=== PATIENT | male | born 1945 | race Caucasian/White ===

== ENCOUNTER 2022-11-09 09:31 | Emergency (ER) | payer MEDICARE ==
[2022-11-09 09:43] VITALS: TEMP 98.4
--- NOTE | 2022-11-09 11:18 | ED ---
Abdominal Pain HPI - General Chief Complaint: Abdominal Pain Stated Complaint: abd pain Time Seen by Provider: 11/09/22 10:38 Source: patient Mode of arrival: ambulatory Limitations: no limitations - History of Present Illness Initial Comments: 77-year-old male presents to the ED with a chief complaint of abdominal pain. 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 States he took omeprazole and rested which improved pain however this morning states that he started to experience pain again. Pain is d ull and constant nature. Currently, states it is an 8 out of 10 in severity. Has been taking Tylenol with relief of the pain. Notes 1 episode of vomiting while and route however currently denies nausea. Last bowel movement yesterday which patient states was smaller inconsistently however denies blood, melena. Denies urinary complaints. Denies chest pain or shortness of breath. No other complaints. - Related Data Home Medications Medication Instructions Recorded Confirmed Acetaminophen Tab [Tylenol Tab] 500 - 1,000 mg PO Q6H PRN 11/09/22 11/09/22 Omeprazole 20 mg PO DAILY 11/09/22 11/09/22 Previous Rx's Medication Instructions Recorded amLODIPine [Norvasc] 5 mg PO DAILY #30 tab 11/09/22 Allergies Allergy/AdvReac Type Severity Reaction Status Date / Time dandelion ([place] Allergy sneezing Verified 11/09/22 12:46 officinale) Review of Systems ROS Statement: Those systems with pertinent positive or pertinent negative responses have been documented in the HPI. ROS Other: All systems not noted in ROS Statement are negative. Past Medical History Past Medical History: GERD/Reflux History of Any Multi-Drug Resistant Organisms: None Reported Past Surgical History: Orthopedic Surgery Past Psychological History: No Psychological Hx Reported Smoking Status: Never smoker Past Alcohol Use History: None Reported Past Drug Use History: None Reported General Exam Limitations: no limitations General appearance: alert, in no apparent distress ENT exam: Present: mucous membranes moist Respiratory exam: Present: normal lung sounds bilaterally Cardiovascular Exam: Present: regular rate, normal rhythm GI/Abdominal exam: Present: soft (Right lower quadrant abdominal tenderness to palpation. No rebound guarding or rigidity. Negative psoas sign.), normal bowel sounds Neurological exam: Present: alert, altered Skin exam: Present: warm, dry Course Vital Signs 11/09/22 11/09/2223 09:39 12:30 13:00 Temperature 98.4 F Pulse Rate 85 86 Respiratory 18 18 18 Rate Blood Pressure 163/114 137/115 192/119 O2 Sat by Pulse 97 96 Oximetry 11/09/22 13:30 Temperature Pulse Rate 80 Respiratory 18 Rate Blood Pressure 178/118 O2 Sat by Pulse 98 Oximetry Medical Decision Making - Medical Decision Making Was pt. sent in by a medical professional or institution (, PA, TRAUMA SURGEON, urgent care, hospital, or care home...) When possible be specific @ -No Did you speak to anyone other than the patient for history (EMS, parent, family, police, friend...)? What history was obtained from this source @ -No Did you review nursing and triage notes (agree or disagree)? Why? @ -I reviewed and agree with nursing and triage notes Were old charts reviewed (outside hosp., previous admission, EMS record, old EKG, old radiological studies, urgent care reports/EKG's, care home records)? Report findings @ -No old charts were reviewed Differential Diagnosis (chest pain, altered mental status, abdominal pain women, abdominal pain men, vaginal bleeding, weakness, fever, dyspnea, syncope, headache, dizziness, GI bleed, back pain, seizure, CVA, palpatations, mental health, musculoskeletal)? @ -Differential Abdominal Pain Men: Appendicitis, cholecystitis, diverticulosis, ischemic bowel, pancreatitis, hepatitis, UTI, gastroenteritis, AAA, incarcerated hernia, bowel obstruction, constipation, inflammatory bowel, hepatitis, peptic ulcer disease, splenic infarction, perforated viscus, testicular torsion, this is not meant to be an all-inclusive list EKG interpreted by me (3pts min.). @ -As above X-rays interpreted by me (1pt min.). @ -None done CT interpreted by me (1pt min.). @ -And showed right hydronephrosis with stone in the bladder. Also signs of d iverticulosis however no diverticulitis. No other acute findings at this time. U/S interpreted by me (1pt. min.). @ -None done What testing was considered but not performed or refused? (CT, X-rays, U/S, labs)? Why? @ -None What meds were considered but not given or refused? Why? @ -None Did you discuss the management of the patient with other professionals (ronny bae i.eKishan Mccall, PA, TRAUMA SURGEON, lab, RT, psych nurse, nursing home social worker, manager loss prevention, teacher, weapons electrical engineering officer, binder caser)? Give summary @ -No Was smoking cessation discussed for >3mins.? @ -No Was critical care preformed (if so, how long)? @ -No Were there social determinants of health that impacted care today? How? (Homelessness, low income, unemployed, alcoholism, drug addiction, transportation, low edu. Level, literacy, decrease access to med. care, assisted, rehab)? @ -No Was there de-escalation of care discussed even if they declined (Discuss DNR or withdrawal of care, Hospice)? DNR status @ -No What co-morbidities impacted this encounter? (DM, HTN, Smoking, COPD, CAD, Cancer, CVA, ARF, Chemo, Hep., AIDS, mental health diagnosis, sleep apnea, morbid obesity)? @ -None Was patient admitted / discharged? Hospital course, mention meds given and route, prescriptions, significant lab abnormalities, going to OR and other pertinent info. @ -Discharge. Laboratory studies unremarkable. CT showed right hydronephrosis and stone in the urinary bladder. Symptoms likely due to stone. At this time pain is improved and patient asymptomatic. However, during patient's stay in the ED is persistently hypertensive at the 170s to 180s systolic. Advised follow-up with PCP. Patient given a dose of hydralazine here and started on amlodipine 5 mg. Discussed return with patient who verbalizes agreement. Undiagnosed new problem with uncertain prognosis? @ -No Drug Therapy requiring intensive monitoring for toxicity (Heparin, Nitro, Insulin, Cardizem)? @ -No Were any procedures done? @ -No Diagnosis/symptom? @ -Kidney stone, hypertension Acute, or Chronic, or Acute on Chronic? @ -Acute Uncomplicated (without systemic symptoms) or Complicated (systemic symptoms)? @ -Uncomplicated Side effects of treatment? @ -No Exacerbation, Progression, or Severe Exacerbation? @ -No Poses a threat to life or bodily function? How? (Chest pain, [place], [place], pneumonia, PE, COPD, DKA, ARF, appy, cholecystitis, CVA, Diverticulitis, Homicidal, Suicidal, threat to staff... and all critical care pts) @ -No - Lab Data Result diagrams: 11/09/22 11:20 11/09/22 11:20 Lab Results 11/09/22 11/09/22 11/09/22 Range/Units 11:20 11:20 13:16 WBC 6.6 (3.8-10.6) k/uL RBC 4.34 (4.30-5.90) m/uL Hgb 14.1 (13.0-17.5) gm/dL Hct 40.9 (39.0-53.0) % MCV 94.2 (80.0-100.0) fL MCH 32.5 (25.0-35.0) pg MCHC 34.4 (31.0-37.0) g/dL RDW 12.8 (11.5-15.5) % Plt Count 149 L (150-450) k/uL MPV 6.9 Neutrophils % 89 % Lymphocytes % 4 % Monocytes % 7 % Eosinophils % 0 % Basophils % 0 % Neutrophils # 5.8 (1.3-7.7) k/uL Lymphocytes # 0.2 L (1.0-4.8) k/uL Monocytes # 0.4 (0-1.0) k/uL Eosinophils # 0.0 (0-0.7) k/uL Basophils # 0.0 (0-0.2) k/uL Sodium 135 L (137-145) mmol/L Potassium 4.8 (3.5-5.1) mmol/L Chloride 102 (98-107) mmol/L Carbon Dioxide 26 (22-30) mmol/L Anion Gap 7 mmol/L BUN 24 H (9-20) mg/dL Creatinine 1.32 H (0.66-1.25) mg/dL Est GFR (CKD-EPI)AfAm 60 (>60 ml/min/1.73 sqM) Est GFR (CKD-EPI)NonAf 52 (>60 ml/min/1.73 sqM) Glucose 106 H (74-99) mg/dL Calcium 8.9 (8.4-10.2) mg/dL Total Bilirubin 1.4 H (0.2-1.3) mg/dL AST 23 (17-59) U/L ALT 17 (4-49) U/L Alkaline Phosphatase 68 (38-126) U/L Total Protein 6.5 (6.3-8.2) g/dL Albumin 3.8 (3.5-5.0) g/dL Amylase 51 (30-110) U/L Lipase 40 (23-300) U/L Urine Color Yellow Urine Appearance Clear (Clear) Urine pH 5.5 (5.0-8.0) Ur Specific [place] 1.021 (1.001-1.035) Urine Protein Trace H (Negative) Urine Glucose (UA) Negative (Negative) Urine Ketones 1+ H (Negative) Urine Blood Negative (Negative) Urine Nitrite Negative (Negative) Urine Bilirubin Negative (Negative) Urine Urobilinogen <2.0 (<2.0) mg/dL Ur Leukocyte Esterase Negative (Negative) Disposition Clinical Impression: Kidney stone on right side, HTN (hypertension) Disposition: HOME SELF-CARE Condition: Good Instructions (If sedation given, give patient instructions): Kidney Stones (ED), Chronic Hypertension (ED) Additional Instructions: Please return to the Emergency Department if symptoms worsen or any other concerns. Please strain your urine for kidney stone. Prescriptions: amLODIPine [Norvasc] 5 mg PO DAILY #30 tab Is patient prescribed a controlled substance at d/c from ED?: No Referrals: None,Stated [Primary Care Provider] - 1-2 days Time of Disposition: 13:30
[2022-11-09 11:34] LABS: Basophils % (A) 0 %; Eosinophils % (A) 0 %; HCT 40.9 % (39.0-53.0); HGB 14.1 gm/dL (13.0-17.5); Lymphocytes # (A) 0.2 k/uL (1.0-4.8); Lymphocytes % (A) 4 %; MCH 32.5 pg (25.0-35.0); MCHC 34.4 g/dL (31.0-37.0); MCV 94.2 fL (80.0-100.0); Mean Platelet Volume 6.9; Monocytes # (A) 0.4 k/uL (0-1.0); Monocytes % (A) 7 %; Neutrophils # (A) 5.8 k/uL (1.3-7.7); Neutrophils % (A) 89 %; Platelet Count 149 k/uL (150-450); RBC 4.34 m/uL (4.30-5.90); RDW 12.8 % (11.5-15.5); WBC 6.6 k/uL (3.8-10.6)
[2022-11-09 12:04] LABS: ALT 17 U/L (4-49); AST 23 U/L (17-59); African American GFR (CKD) 60 (>60 ml/min/1.73 sqM); Albumin 3.8 g/dL (3.5-5.0); Alkaline Phosphatase 68 U/L (38-126); Amylase 51 U/L (30-110); Anion Gap 7 mmol/L; Blood Urea Nitrogen 24 mg/dL (9-20); Calcium 8.9 mg/dL (8.4-10.2); Carbon Dioxide 26 mmol/L (22-30); Chloride 102 mmol/L (98-107); Glucose 106 mg/dL (74-99); Lipase 40 U/L (23-300); Non-African American GFR(CKD) 52 (>60 ml/min/1.73 sqM); Potassium 4.8 mmol/L (3.5-5.1); Sodium 135 mmol/L (137-145); Total Bilirubin 1.4 mg/dL (0.2-1.3); Total Protein 6.5 g/dL (6.3-8.2)
[2022-11-09] MEDS ORDERED: SODIUM CHLORIDE 0.9% 1,000 ML IV ONE (12:21)
--- NOTE | 2022-11-09 12:22 | CT ---
EXAMINATION TYPE: CT abdomen pelvis wo con DATE OF EXAM: 11/09/2022 COMPARISON: 07/14/2010 INDICATION: RLQ pain DLP: 461.9 mGycm, Automated exposure control for dose reduction was used. CONTRAST: 0 mL of Isovue 300. Study performed without Oral Contrast TECHNIQUE: Axial images were obtained from above the diaphragm to the pubic rami in the axial plane a t 5 mm thick sections. Reconstructed images are reviewed on the computer in the coronal plane. FINDINGS: Limited CT sections are obtained the lung bases. The lung bases are clear. Coronary artery calcific ation is present. CT ABDOMEN: Liver: Normal Spleen: Calcified granuloma is within the spleen. Pancreas: Normal Adrenal glands: The adrenal glands are normal. Gallbladder: Normal Kidneys: No masses are evident. There is mild right hydronephrosis. Hydroureter is present to the pel cornelius inlet. No obstructing right ureteral etiology is identified. No cysts are present. There is a hy perdense lesion on the posterior lateral right kidney measuring 1.9 cm. There are nonobstructing punc riojas left renal stones. No hydronephrosis or hydroureter is evident. However, there is a punctate kristen cification measuring 0.2 cm at the inferior left ureteral vesicle junction region. Small distal nonob structing renal stone should be considered. This is contralateral side from the patient's pain. Aorta: Vascular calcification is within the aorta. Inferior vena cava: Normal. CT PELVIS: Loops of bowel within the abdomen and pelvis are normal. This study is without oral contrast limi ting bowel evaluation. Scattered diverticuli within the sigmoid colon. Appendix: Not identified. No dilated tubular structure or inflammatory changes are evident. Urinary bladder: Punctate calcification is identified at the inferior dependent portion may be a nono bstructing distal left ureteral vesicle junction stone. This could be a tiny calcification within the urinary bladder. Genitourinary structures: Prostate is prominent and contains calcification Osseous structures: No suspicious lytic or sclerotic lesions. Scoliosis to the lumbar spine degenerat demetrice disc changes are within the lumbar spine vacuum disc is noted. IMPRESSIONS: 1. There may be a 0.2 cm distal left ureteral vesicle junction stone or urinary bladder stone. This the contralateral side patient's pain. 2. Mild right hydronephrosis and hydroureter extending to the pelvic inlet. No obstructing etiology i s identified. 3. Diverticulosis without acute diverticulitis. 4. Scoliosis with degenerative disc changes. 5. Appendix is not identified. No suspicious secondary changes to suggest acute appendicitis. Clinica l management is recommended.
[2022-11-09 13:35] LABS: Appearance,Urine Clear (Clear); Bilirubin,Urine Negative (Negative); Blood,Urine Negative (Negative); Color,Urine Yellow; Glucose,Urine (UA) Negative (Negative); Ketones,Urine 1+ (Negative); Leukocyte Esterase,Urine Negative (Negative); Nitrite,Urine Negative (Negative); PH, Urine 5.5 (5.0-8.0); Protein,Urine Trace (Negative); Specific Gravity,Urine 1.021 (1.001-1.035); Urobilinogen,Urine <2.0 mg/dL (<2.0)
[2022-11-09] MEDS ORDERED: hydrALAZINE HCL 20 MG/ML 1 ML VIAL IVP STA (13:48)
[2022-11-09 14:39] VITALS: BP 144/78; PULSE 98; RESP 20
== END 2022-11-09 15:37 | disposition home or self-care (01) ==
LOC: EC 09:31
DX: N20.0 Calculus of kidney (principal); M41.9 Scoliosis, unspecified; I10 Essential (primary) hypertension; K21.9 Gastro-esophageal reflux disease without esophagitis; Z79.899 Other long term (current) drug therapy; Z88.8 Allergy status to other drugs, medicaments and biological substances
CPT/HCPCS: 36415; 80053; 82150; 83690; 85025; 81003; 74176; 99284; 96374; 96361; J0360